=== PATIENT | male | born 1980 | race Caucasian/White ===

== ENCOUNTER 2019-12-13 12:06 | Emergency (ER) | payer SELFPAY ==
[~2019-12-13] VITALS: Ht 180.3 cm; Wt 101.2 kg
--- OUTSIDE RECORDS SUMMARY | 2019-12-13 12:11 | XMS REPORT | Continuity of Care Document ---
Author Author [facility] Organization [employer] Address Unknown Phone Unavailable Allergies There is no data. Medications There is no data. Problems There is no data. Procedures There is no data. Results There is no data. Encounters ACCT No. Visit Date/Time Discharge Status Pt. Type Provider Facility Loc./Unit Complaint [id number] 12/13/2019 12:08:[address] Emergency REJI SWARTZ, K[facility] ER FS LACERATION ON LT ARM
[2019-12-13] MEDS ORDERED: LIDOCAINE 1% INJ 20 ML 20 ML VIAL ONE (12:16)
[2019-12-13] MEDS ORDERED: LIDOCAINE 1% INJ 20 ML 20 ML VIAL INJ ONE (12:30)
--- NOTE | 2019-12-13 12:48 | ED Upper Extremity ---
General Chief Complaint: Laceration Stated Complaint: LACERATION ON LT ARM Nursing Triage Note: Pt to ED per POV reporting laceration to Left upper arm bicep region. Pt has good movement, sensation reported. No LOC. Pt reports fell into the "china hutch" at 0230 this a.m. Pt states he wasn't aware it was this bad till sister looked at it. Glass shard fragments noted in laceration. Bleeding controlled. Nursing Sepsis Screen: No Definite Risk History of Present Illness Date Seen by Provider: Dec 13, 2019 Time Seen by Provider: 12:43 Initial Comments Pt presents with laceration to left upper arm. Stumbled into a glass hutch last night about 2:30am and cut his arm. He is able to move his arm without difficulty. Does have some glass fragments in the wound. Tetanus is up to date. Allergies and Home Medications Allergies Coded Allergies: No Known Drug Allergies (Unverified , 12/13/19) Home Medications No Active Prescriptions or Reported Meds Patient Home Medication List Home Medication List Reviewed: Yes Review of Systems Constitutional: no symptoms reported EENTM: no symptoms reported Respiratory: no symptoms reported Skin: other (Laceration) Psychiatric/Neurological: Denies Numbness, Denies Paresthesia, Denies Weakness Past Gbmlhpy-Cbrowa-Hsataj Hx Patient Social History Alcohol Use: Denies Use Recreational Drug Use: No Smoking Status: Current Everyday Smoker Type Used: Cigarettes 2nd Hand Smoke Exposure: Yes Recent Foreign Travel: No Contact w/Someone Who Travel: No Recent Infectious Disease Expo: No Recent Hopitalizations: No Physical Abuse: No Sexual Abuse: No Mistreated: No Fear: No Immunizations Up To Date Tetanus Booster (TDap): Less than 5yrs Seasonal Allergies Seasonal Allergies: No Past Medical History Surgeries: Yes (R FOOT FUSION) Orthopedic Respiratory: No Cardiac: No Neurological: No Genitourinary: No Gastrointestinal: No Musculoskeletal: No Endocrine: No HEENT: No Cancer: No Psychosocial: No Integumentary: No Blood Disorders: No Physical Exam Vital Signs Vital Signs - First Documented 12/13/19 12:10 Temp 37.0 Pulse 92 Resp 16 B/P (MAP) 132/87 (102) Pulse Ox 97 O2 Delivery Room Air Capillary Refill : Less Than 3 Seconds Height, Weight, BMI Height: '" Weight: lbs. oz. kg; 31.00 BMI Method: General Appearance: WD/WN, no apparent distress HEENT: normal ENT inspection Respiratory: no respiratory distress Neurologic/Psychiatric: no motor/sensory deficits Skin: other (11cm laceration left upper arm with some glass fragments in the wound) Procedures/Interventions Wound Location: Upper Extremities Other Wound Location Left arm Wound Length (cm): 11 Wound's Depth, Shape: into muscle, irregular Wound Explored: foreign body removed Anesthesia: 1% Lidocaine Suture: Prolene Suture Size: 3-0 Number of Sutures: 9 Sterile Dressing Applied?: Yes Progress/Results/Core Measures Results/Orders My Orders Orders - KIANA MENDOZA MD Lidocaine 1% Inj 20 Ml (Xylocaine 1% Inj (12/13/19 12:16) Lidocaine 1% Inj 20 Ml (Xylocaine 1% Inj (12/13/19 12:30) Medications Given in ED Current Medications Medications Dose Ordered Sig/Lesia Route Start Time Stop Time Status Last Admin Dose Admin Lidocaine HCl 20 ml ONCE ONCE INJ 12/13/19 12:30 12/13/19 12:31 DC 12/13/19 12:23 20 ML Vital Signs/I&O 12/13/19 12:10 Temp 37.0 Pulse 92 Resp 16 B/P (MAP) 132/87 (102) Pulse Ox 97 O2 Delivery Room Air Blood Pressure Mean: 102 Departure Impression Primary Impression: Laceration of left upper arm with foreign body Disposition: HOME, SELF-CARE Condition: Stable Departure-Patient Inst. Decision time for Depature: 12:47 Patient Instructions: Laceration Repair With Stitches (DC), Wound Care (DC) Add. Discharge Instructions: Return for suture removal in 7-10 days. All discharge instructions reviewed with patient and/or family. Voiced understanding. Scripts No Active Prescriptions or Reported Meds KIANA MENDOZA MD Dec 13, 2019 12:48
[2019-12-13 12:51] VITALS: BP 134/82
--- NOTE | 2019-12-13 12:51 | NUR ---
Pt discharged to home after repair of 11 cm laceration to L upper arm requiring 9 sutures of 3-0 Ethilon.
--- NOTE | 2019-12-13 12:51 | NUR ---
Pt discharged verbalizing understanding of instructions reviewed. Plan return 7-10 days for suture removal, sooner to ER for any signs or symptoms of infection.
== END 2019-12-13 12:51 | disposition home or self-care (01) ==
LOC: ER FS 12:08
DX: S41.122A Laceration with foreign body of left upper arm, initial encounter (principal); F17.210 Nicotine dependence, cigarettes, uncomplicated; W25.XXXA Contact with sharp glass, initial encounter; W18.40XA Slipping, tripping and stumbling without falling, unspecified, initial encounter
CPT/HCPCS: 12015; 24200; 99284; A6223

== ENCOUNTER → 2020-04-20 | Outpatient (CLI) | payer OTHER ==
--- NOTE | 2020-04-20 14:07 | Diagnostic Imaging Report ---
Exam: CT right ankle and foot without contrast. Date: April 20, 2020. Indication: 39-year-old male, right foot pain. Beam fell on foot 3 years ago. Persistent foot pain. Comparison: None available. Technique: Axial CT images were contiguously obtained at the level of the right foot and ankle without contrast. Coronal and sagittal reformats were obtained and provided. All CT scans use one or more of the following dose optimizing techniques: automated exposure control, MA and/or KvP adjustment based on a patient size and exam type, or iterative reconstruction. FINDINGS: There are multiple well-corticated areas of ossification volarly located near the expected course of the volar Lisfranc ligament. This likely relates to the sequela of remote prior injury. The volar Lisfranc ligament as well as the Lisfranc ligament proper are not well directly evaluated on CT. There is offset of the articulating surface of the base of the second metatarsal relative to the medial cuneiform laterally by 3.4 mm as measured on long axis image 94. There is irregular morphology of the volar aspect of the base of the third metatarsal without currently visible fracture line likely relating to sequela of remote prior fracture. There is also a well-corticated ossification adjacent to the dorsal margin of the second metatarsal base also likely relating to remote prior fracture. There is some loss of normal alignment of the articulating surface of the third metatarsal bases relative to the lateral cuneiform at its volar aspect perhaps best appreciated on long axis image 87 and adjacent sequential images. The more dorsal aspect of the bones do appear normally positioned however. The fourth and fifth metatarsal bases as well as the first metatarsal base do appear normally aligned. There is some slight irregularity between the middle and lateral cuneiforms which could relate to sequela of prior injury. There is no identified acute fracture. There is no aggressive bone destruction. There is a benign lipoma in the calcaneus measuring approximately 3.2 x 2.3 x 2.9 cm in size. The tibiotalar and subtalar joints are unremarkable in appearance. There is no tibiotalar or subtalar joint effusion. There is preservation of normal fat attenuation in the sinus tarsi. Impression: 1. Multiple areas of well-corticated ossification volarly located at the level of the mid foot near the expected course of the volar Lisfranc ligament likely relating to sequela of remote prior injury. The volar Lisfranc ligament as well as the Lisfranc ligament proper are not well directly evaluated on CT. There is however abnormal lateral subluxation of the second metatarsal base relative to the middle cuneiform and findings suggesting prior Lisfranc type injury. 2. Irregularity of the contour of the volar aspect of the base of the third metatarsal with some loss of normal alignment of the articulating surface at this location relative to the lateral cuneiform compatible with a sequela of remote prior fracture. No current fracture line. 3. Remote prior fracture of the dorsal aspect of the base of the second metatarsal. 4. No acute fracture. No aggressive bone destruction or evidence of osteomyelitis 5. Benign lipoma in the calcaneus. Dictated by: Dictated on workstation # [id number]
== END ==
LOC: RAD FS 12:11
PROVIDERS: ATTEND Orthopaedic Surgery
DX: S93.324S Dislocation of tarsometatarsal joint of right foot, sequela (principal); M19.171 Post-traumatic osteoarthritis, right ankle and foot; M89.9 Disorder of bone, unspecified; W19.XXXA Unspecified fall, initial encounter; Z87.81 Personal history of (healed) traumatic fracture
CPT/HCPCS: 73700